=== PATIENT | female | born 1970 | race Caucasian/White ===

== ENCOUNTER 2016-03-02 17:20 | Emergency (ER) | payer BC ==
[~2016-03-02] VITALS: Ht 165.1 cm; Wt 72.6 kg
--- NOTE | ~2016-03-02 | EKG ---
[address] [place] [address] ELECTROCARDIOGRAM REPORT Name: YELENA JACOB Room #: [facility]#: [id number] Admission: 03/02/16 Attend Phys: Discharge: 03/02/16 Date of : 66 Report #: [id number] THIS REPORT FOR: //name// [facility] ED Test Date: 2016-03-02 Test Time: 17:24:31 Pat Name: YELENA JACOB Department: Room: Gender: F [employer] Machine Tender: Shay MOLINA : 1970 Requested By: Angela Argueta Order Number: [id number] MD: Herve Brandt Measurements Intervals [place] Rate: 73 P: 61 MA: 174 QRS: 36 QRSD: 102 T: 29 QT: 399 QTc: 440 Interpretive Statements Sinus rhythm Multiple ventricular premature complexes Borderline low voltage, extremity leads No previous ECG available for comparison Electronically Signed On 03-03-2016 7:39:04 SHAKE TABLE OPERATOR by Herve Brandt [email or web address] <ELECTRONICALLY SIGNED> By: Herve Brandt MD, [facility] 03/03/16 0739 1724 1724 Herve Brandt MD, FACC /EPI
[2016-03-02] MEDS ORDERED: VIBERZI75 MG PO (17:42)
[2016-03-02 17:49] LABS: ABSOLUTE NEUTROPHILS 6.9 thou/uL (1.4-8.2); BASOPHILS 0.8 % (0.0-2.0); EOSINOPHILS 1.5 % (0.0-3.0); HEMATOCRIT 42.2 % (37.0-47.0); HEMOGLOBIN 14.3 gm/dL (12.0-15.0); LYMPHOCYTES 24.3 % (24.0-44.0); MCH 29.5 pg (26.0-34.0); MCHC 33.9 % (28.0-37.0); MONOCYTES 8.1 % (1.0-8.0); PLATELET COUNT 314 thou/uL (150-400); POLYS 65.3 % (36.0-66.0); RBC 4.85 mil/uL (4.20-5.00); RDW 12.6 % (10.5-14.5); WBC 10.6 thou/uL (4.0-11.0)
[2016-03-02 17:55] LABS: MANUAL DIFF NO
[2016-03-02 18:08] LABS: ANION GAP 12 mmol/L (7-16); CHLORIDE 104 mmol/L (98-107); CO2 23 mmol/L (21-32); POTASSIUM 3.5 mmol/L (3.5-5.1); SODIUM 139 mmol/L (136-145)
[2016-03-02 18:09] LABS: ALBUMIN 4.2 g/dL (3.4-5.0); ALKALINE PHOSPHATASE 69 U/L (46-116); BUN 20 mg/dL (7-18); CALCIUM 9.1 mg/dL (8.5-10.1); CREATININE 0.9 mg/dL (0.6-1.3); GLUCOSE 92 mg/dL (70-99); SGOT 12 U/L (15-37); SGPT 19 U/L (30-65); TOTAL BILIRUBIN 0.4 mg/dL (<0.1-1.0); TROPONIN-I < 0.04 ng/mL (<0.04-0.07)
[2016-03-02 19:00] VITALS: BP 102/71
== END 2016-03-02 19:01 | disposition home or self-care (01) ==
LOC: ER 17:20
PROVIDERS: Nurse Practitioner Family
DX: I49.3 Ventricular premature depolarization (principal); Z90.710 Acquired absence of both cervix and uterus; F10.99 Alcohol use, unspecified with unspecified alcohol-induced disorder